=== PATIENT | female | born 1995 | race American Indian/Alaskan Native ===

== ENCOUNTER 2017-08-04 00:26 | Emergency (ER) | payer OTHER ==
[2017-08-04] MEDS ORDERED: ASPIRIN PO ONE (01:05)
[2017-08-04 01:30] LABS: Hematocrit 38.5 % (30.3-42.9); Hemoglobin 12.2 gm/dl (10.1-14.3); Mean Corpuscular HGB Conc 32 % (30-34); Mean Corpuscular Hemoglobin 29 pg (28-32); Mean Corpuscular Volume 90 fl (79-97); Red Blood Count 4.28 M/mm3 (3.65-5.03); Red Cell Distribution Width 12.7 % (13.2-15.2)
[2017-08-04 01:31] LABS: Platelet Count 259 K/mm3 (140-440)
[2017-08-04 01:52] LABS: BUN/Creatinine Ratio 11; Blood Urea Nitrogen 13 mg/dL (7-17); Calcium 8.9 mg/dL (8.4-10.2); Hemolysis Index 180
--- NOTE | 2017-08-04 03:28 | Emergency Department Report ---
ED Palpitations HPI - General Chief Complaint: Arrhythmia/Palpitations Stated Complaint: CHEST PAIN Time Seen by Provider: 08/04/17 02:35 Source: EMS Mode of arrival: Stretcher Limitations: No Limitations - History of Present Illness Initial Comments: Patient took some marijuana yesterday and says she felt her heart racing and also had some left-sided chest pain of mild to moderate intensity and nonradiating with no aggravating or relieving factor. Complaint: "heart racing" Onset/Timin (day) -: Gradual Context: occured during rest Associated Symptoms: denies other symptoms - Related Data Allergies Allergy/AdvReac Type Severity Reaction Status Date / Time No Known Allergies Allergy Verified 08/04/17 03:00 ED Review of Systems ROS: Stated complaint: CHEST PAIN Other details as noted in HPI Comment: All other systems reviewed and negative ED Past Medical Hx - Past Medical History Previous Medical History?: No - Surgical History Hx Cholecystectomy: Yes - Social History Smoking Status: Never Smoker Substance Use Type: Marijuana ED Physical Exam - General Limitations: No Limitations General appearance: alert, in no apparent distress - Head Head exam: Present: atraumatic, normocephalic - Eye Eye exam: Present: normal appearance - ENT ENT exam: Present: mucous membranes moist - Neck Neck exam: Present: normal inspection - Respiratory Respiratory exam: Present: normal lung sounds bilaterally. Absent: respiratory distress - Cardiovascular Cardiovascular Exam: Present: regular rate, normal rhythm. Absent: systolic murmur, diastolic murmur, rubs, gallop - GI/Abdominal GI/Abdominal exam: Present: soft, normal bowel sounds. Absent: tenderness - Rectal Rectal exam: Present: deferred - Extremities Exam Extremities exam: Present: normal inspection - Back Exam Back exam: Present: normal inspection - Neurological Exam Neurological exam: Present: alert, oriented X3 - Psychiatric Psychiatric exam: Present: normal affect, normal mood - Skin Skin exam: Present: warm, dry, intact, normal color. Absent: rash ED Course Vital Signs 08/04/17 08/04/17 08/04/17 00:52 01:00 01:01 Temperature 98.2 F Pulse Rate 121 H 135 H 134 H Respiratory 21 16 Rate Blood Pressure 144/66 151/73 O2 Sat by Pulse 98 99 Oximetry 08/04/17 08/04/17 08/04/17 01:11 01:21 01:31 Temperature Pulse Rate 130 H 130 H 111 H Respiratory 15 21 13 Rate Blood Pressure 151/73 149/65 154/61 O2 Sat by Pulse 98 98 97 Oximetry 08/04/17 08/04/17 08/04/17 01:41 01:45 01:51 Temperature 97.1 F L Pulse Rate 105 H 104 H 103 H Respiratory 17 15 9 L Rate Blood Pressure 154/61 149/71 149/71 O2 Sat by Pulse 99 99 91 Oximetry 08/04/17 08/04/17 08/04/17 01:55 02:00 02:05 Temperature Pulse Rate 100 H 104 H 99 H Respiratory 25 H 17 17 Rate Blood Pressure 149/71 132/78 132/78 O2 Sat by Pulse 100 79 L 100 Oximetry 08/04/17 08/04/17 08/04/17 02:11 02:15 02:21 Temperature Pulse Rate 99 H 99 H 95 H Respiratory 23 32 H 11 L Rate Blood Pressure 132/78 128/83 128/83 O2 Sat by Pulse 99 96 98 Oximetry 08/04/17 08/04/17 08/04/17 02:25 02:30 02:35 Temperature Pulse Rate 95 H 101 H 108 H Respiratory 28 H 25 H 12 Rate Blood Pressure 128/83 124/80 124/80 O2 Sat by Pulse 97 98 98 Oximetry 08/04/17 08/04/17 08/04/17 02:41 02:45 02:51 Temperature Pulse Rate 102 H 99 H 99 H Respiratory 20 14 16 Rate Blood Pressure 124/80 115/84 115/84 O2 Sat by Pulse 99 97 98 Oximetry 08/04/17 08/04/17 08/04/17 02:55 03:00 03:01 Temperature Pulse Rate 93 H 96 H 104 H Respiratory 14 11 L Rate Blood Pressure 115/84 126/63 O2 Sat by Pulse 98 91 Oximetry 08/04/17 03:05 Temperature Pulse Rate 98 H Respiratory 24 Rate Blood Pressure 126/63 O2 Sat by Pulse 97 Oximetry ED Medical Decision Making - Lab Data Result diagrams: 08/04/17 01:10 08/04/17 01:10 - EKG Data EKG shows normal: sinus rhythm (sinus tachycardia at a rate of 140), axis ( normal), intervals (normal), QRS complexes (normal), ST-T waves (normal) Critical care attestation.: If time is entered above; I have spent that time in minutes in the direct care of this critically ill patient, excluding procedure time. ED Disposition Clinical Impression: Substance abuse, Medication side effect Disposition: DC-01 TO HOME OR SELFCARE Is pt being admited?: No Does the pt Need Aspirin: No Condition: Stable Additional Instructions: Avoid marijuana Referrals: MEI CLIFTON MD [Primary Care Provider] - 3-5 Days Time of Disposition: 03:47 Print Language: MALTESE
[2017-08-04 04:20] VITALS: BP 114/93
== END 2017-08-04 04:21 | disposition home or self-care (01) ==
LOC: ED 00:26
DX: R00.2 Palpitations (principal); R07.89 Other chest pain; T40.7X5A Adverse effect of cannabis (derivatives), initial encounter; Z90.49 Acquired absence of other specified parts of digestive tract; Y92.89 Other specified places as the place of occurrence of the external cause
CPT/HCPCS: 36415; 80048; 84484; 84703; 85025; 99284